=== PATIENT | female | born 1995 | race African-American/Black ===

== ENCOUNTER 2022-12-01 15:22 | Emergency (ER) | payer MEDICAID ==
[~2022-12-01] VITALS: Ht 170.2 cm; Wt 65.8 kg
[2022-12-01] MEDS ORDERED: KETOROLAC 30MG/ML VIAL IM ONE (17:30)
[2022-12-01] MEDS ORDERED: METHOCARBAMOL 500MG TABLET PO ONE (17:30)
[2022-12-01] MEDS ORDERED: IBUPROFEN 400MG TABLET PO NR (18:45)
[2022-12-01] MEDS ORDERED: METH-653 MT (18:48)
[2022-12-01] MEDS ORDERED: IBUP-2028 MT (18:48)
[2022-12-01 19:01] VITALS: BP 110/60
== END 2022-12-01 19:04 | disposition home or self-care (01) ==
LOC: ER 15:22
DX: R07.81 Pleurodynia (principal); M54.9 Dorsalgia, unspecified
CPT/HCPCS: 71101; 81025; 99283; J1885

== ENCOUNTER 2024-07-24 10:50 | Emergency (ER) | payer MEDICAID ==
[~2024-07-24] VITALS: Ht 170.2 cm; Wt 67.0 kg
[~2024-07-24 10:50] MED LIST: IBUP-2028 MT; METH-653 MT
[2024-07-24 10:55] VITALS: O2SAT 100
[2024-07-24 11:03] VITALS: BP 112/62; PULSE 100; RESP 18; TEMP 37.2; O2SAT 100
[2024-07-24] MEDS ORDERED: ALBU18HF2 IH (11:35)
[2024-07-24] MEDS ORDERED: IBUP-2029 MT (11:35)
== END 2024-07-24 11:51 | disposition home or self-care (01) ==
LOC: ER 10:56
DX: U07.1 COVID-19 (principal)
CPT/HCPCS: 99281